=== PATIENT | female | born 1945 | race American Indian/Alaskan Native ===

== ENCOUNTER 2016-10-10 20:10 | Emergency (ER) | payer MEDICARE ==
[2016-10-10 21:05] VITALS: BP 165/77
== END 2016-10-10 21:02 | disposition left against medical advice (07) ==
LOC: ED 20:10
DX: S40.822A Blister (nonthermal) of left upper arm, initial encounter (principal); Z53.21 Procedure and treatment not carried out due to patient leaving prior to being seen by health care provider

== ENCOUNTER 2016-10-11 14:15 | Emergency (ER) | payer MEDICARE | END 2016-10-11 14:16 | disposition left against medical advice (07) | LOC: ED 14:15 | DX: Z53.21 Procedure and treatment not carried out due to patient leaving prior to being seen by health care provider (principal) ==